=== PATIENT | male | born 1950 | race Caucasian/White ===

== ENCOUNTER 2021-08-21 13:46 | Day surgery (SDC) | payer MEDICARE, BC ==
[2021-08-17 14:48] LABS: BASOPHILS # (AUTO) 0.1 X10'3 (0-0.2); BASOPHILS % (AUTO) 0.7 % (0-1); EOSINOPHILS # (AUTO) 0.2 X10'3 (0-0.9); EOSINOPHILS % (AUTO) 2.2 % (0-6); HEMATOCRIT 46.2 % (42.0-52.0); HEMOGLOBIN 15.7 g/dl (14.0-17.9); LYMPHOCYTES # (AUTO) 2.1 X10'3 (1.1-4.8); LYMPHOCYTES % (AUTO) 21.2 % (21-51); MEAN CORPUSCULAR HEMOGLOBIN 30.5 PG (27.0-31.0); MEAN CORPUSCULAR VOLUME 89.7 FL (78-98); MEAN PLATELET VOLUME 8.6 FL (7.4-10.4); MONOCYTES # (AUTO) 1.1 X10'3 (0-0.9); MONOCYTES % (AUTO) 10.8 % (2-12); NEUTROPHILS # (AUTO) 6.5 X10'3 (1.8-7.7); NEUTROPHILS % (AUTO) 65.1 % (42-75); PLATELET COUNT 233 X10'3 (140-440); RED BLOOD COUNT 5.15 X10'6 (4.70-6.10); RED CELL DISTRIBUTION WIDTH 13.2 % (11.5-14.5)
[2021-08-17 14:57] LABS: APTT 30 SECONDS (22-32)
[2021-08-17 15:03] LABS: ALBUMIN 4.3 G/DL (3.4-5.0); ANION GAP 11 (8-16); BLOOD UREA NITROGEN 12 MG/DL (7-18); BUN/CREATININE RATIO 15.2 (5.4-32.0); CALCIUM 9.1 MG/DL (8.5-10.1); CHLORIDE 101 MMOL/L (99-107); CHOL/HDL RATIO 4.5 (0.00-4.99); CHOLESTEROL 204 MG/DL (0-200); CREATININE 0.79 MG/DL (0.60-1.10); GLUCOSE 104 MG/DL (70-104); HDL CHOLESTEROL 45 MG/DL (35-60); LDL CHOLESTEROL 133 MG/DL (50-100); POTASSIUM 3.4 MMOL/L (3.5-5.1); SODIUM 138 MMOL/L (135-145); TOTAL CARBON DIOXIDE 26.1 MMOL/L (24-32); TRIGLYCERIDES 157 MG/DL (20-135); eGFR > 90 ML/MIN
[2021-08-21] VITALS (9 sets, daily range): BP systolic 114–147; BP diastolic 66–83
[~2021-08-21] VITALS: Ht 175.3 cm; Wt 97.3 kg
[2021-08-21] MEDS ORDERED: diphenhydrAMINE 25mg capsule PO PRN (14:10)
[2021-08-21] MEDS ORDERED: LORazepam 0.5 MG tablet PO PRN (14:10)
[2021-08-21] MEDS ORDERED: AMLO10TA PO (14:14)
[2021-08-21] MEDS ORDERED: VALS1TAB81 PO (14:14)
[2021-08-21] MEDS ORDERED: AMLO5TAB16 PO (14:14)
[2021-08-21] MEDS ORDERED: ASPI-1265 PO (14:15)
[2021-08-21] MEDS ORDERED: potassium Cl 20 mEq SR tablet PO STA (14:51)
[2021-08-21] MEDS ORDERED: nitroGLYCERIN-Tridil 50MG/D5W 250 ML IV ONE (16:48)
[2021-08-21] MEDS ORDERED: verapamil 2.5 mg/ml inj IV ONE (16:48)
[2021-08-21] MEDS ORDERED: fentaNYL/PF 50MCG/1 ML 2ML syringe ONE (16:49)
[2021-08-21] MEDS ORDERED: iohexol 350MG/ML 100ml bottle IV ONE (16:49)
[2021-08-21] MEDS ORDERED: midazolam 1 mg/ML 2ml injection ONE ×2 (16:49→17:13)
[2021-08-21] MEDS ORDERED: heparin 1,000unit/ml 10ml vial 10 ML ONE (16:49)
[2021-08-21] MEDS ORDERED: HYDROcodone/acetaminophen 10/325mg tab PO PRN (18:05)
[2021-08-21] MEDS ORDERED: HYDROcodone/acetaminophen 5mg/325mg tablet PO PRN (18:05)
== END 2021-08-21 20:00 | disposition home or self-care (01) ==
LOC: SSTAY O 13:46
PROVIDERS: ATTEND Internal Medicine Interventional Cardiology
DX: R94.39 Abnormal result of other cardiovascular function study (principal); I25.10 Atherosclerotic heart disease of native coronary artery without angina pectoris; I10 Essential (primary) hypertension; E78.5 Hyperlipidemia, unspecified; Z79.899 Other long term (current) drug therapy; Z79.82 Long term (current) use of aspirin; Z87.891 Personal history of nicotine dependence; Z85.89 Personal history of malignant neoplasm of other organs and systems; Z79.01 Long term (current) use of anticoagulants
CPT/HCPCS: 36415; 80048; 80061; 84132; 85025; 85610; 85730; 93005; 93458; 99152; 99153; C1769; C1894; J1644; J2250; J3010; J3490; J7030; Q0163; A4620; A6258; A6449; Q9967